=== PATIENT | male | born 1985 | race Caucasian/White ===

== ENCOUNTER → 2017-09-01 | Outpatient (CLI) | payer OTHER | LOC: M PAIN 13:00 | DX: M54.17 Radiculopathy, lumbosacral region (principal); M51.26 Other intervertebral disc displacement, lumbar region; G89.29 Other chronic pain; Z79.899 Other long term (current) drug therapy | CPT/HCPCS: G0463 ==

== ENCOUNTER → 2017-12-06 | Outpatient (CLI) | payer OTHER | LOC: M RAD 13:05 | DX: J32.4 Chronic pansinusitis (principal) | CPT/HCPCS: 70486 ==

== ENCOUNTER → 2018-01-19 | Outpatient (REF) | payer OTHER ==
[2018-01-19 12:22] LABS: PLATELET COUNT, AUTOMATED 225 10^3/uL (150-450)
[2018-01-19 12:32] LABS: COLLAGEN EPINEPHRINE 113 SECONDS (74-162)
[2018-01-19 12:33] LABS: INR 0.97; PARTIAL THROMBOPLASTIN TIME 28.1 SECONDS (25.4-37.6)
== END ==
LOC: M LABDRAW1 12:04
DX: D69.1 Qualitative platelet defects (principal); Z79.01 Long term (current) use of anticoagulants
CPT/HCPCS: 85049

== ENCOUNTER → 2018-05-02 | Outpatient (CLI) | payer OTHER ==
--- NOTE | 2018-05-02 14:18 | PFTRPT ---
Height: 72.00 Inches Weight: 220.00 Lbs BSA: 2.22 Diagnosis: J44.9 DATE OF PROCEDURE: 05/02/2018 ORDERED BY: Dr. Freddie Prakash Spirometry: Pre and post bronchodilator study of excellent technical quality. Some difficulty with required maneuvers is noted. Forced vital capacity reduced. FEV1 out of proportion. Obstructive index is, therefore, reduced. Flow Volume Loop: Expiratory limb of the flow volume loop consistent with flow rate limitation. Favorable bronchodilator response is identified. Lung Volumes: Total lung capacity normal. Residual volume in proportion. Diffusing Capacity: Diffusing capacity is normal. Hemoglobin: No hemoglobin available for correction. Airway Mechanics: Airway resistance and conductance are normal. IMPRESSION: Nonspecific airflow limitation with favorable bronchodilator response. Please correlate clinically. MTDD
== END ==
LOC: M CARPUL 12:56
PROVIDERS: ATTEND Family Medicine
DX: R06.00 Dyspnea, unspecified (principal)